=== PATIENT | female | born 1955 | race Caucasian/White ===

== ENCOUNTER 2018-01-14 14:05 | Outpatient (CLI) | payer BC | END 2018-01-14 14:06 | disposition home or self-care (01) | LOC: BICMAMMO 14:05 | PROVIDERS: ATTEND Family Medicine | DX: Z12.31 Encounter for screening mammogram for malignant neoplasm of breast (principal); R92.1 Mammographic calcification found on diagnostic imaging of breast | CPT/HCPCS: 77063; 77067 ==

== ENCOUNTER 2018-09-12 07:34 | Outpatient (CLI) | payer BC ==
--- NOTE | 2018-09-12 09:39 | MRI ---
MRI LUMBAR SPINE: HISTORY: Back pain. Lumbar radiculopathy, M54.16. FINDINGS: Multiplanar, multisequence noncontrast-enhanced images of the lumbar spine obtained. For the purposes of this dictation, the last freely mobile vertebral body will be considered to be th e L5 vertebral body. All other vertebral bodies will be numbered according to this. T12-L1: Unremarkable. L1-2: Mild facet hypertrophy is seen. The central canal and neural foramen are patent. L2-3: Disk desiccation is seen. There is a broad-based mild disk bulge with bilateral facet and lig amentum flavum hypertrophy resulting in mild central and lateral recess stenosis. An annular fissure is seen along the posterior aspect of the annulus fibrosis. L3-4: Disk desiccation is seen. There is a mild broad-based disk bulge with bilateral facet and lig amentum flavum hypertrophy. A small amount of fluid seen in the L3-4 facet joints. No significant d egree of central or neural foraminal narrowing is seen. L4-5: Disk desiccation is seen. There is a mild broad-based disk bulge. Bilateral facet and ligame ntum flavum hypertrophy is seen. Some fluid is seen in the L4-5 facet joints. Minimal bilateral levi ral foraminal narrowing is seen. L5-S1: Disk desiccation is seen. There is a broad-based disk bulge. Bilateral facet hypertrophy an d ligamentum flavum hypertrophy is seen. A small amount of fluid is seen in the L5-S1 facet joints. Mild left-sided neural foraminal narrowing is seen. The right neural foramen is patent. IMPRESSION: Minimal multilevel facet hypertrophic changes seen. No significant degree of central or neural fredrick inal narrowing is seen. POS: [facility]
== END 2018-09-12 07:35 | disposition home or self-care (01) ==
LOC: TBSIIMAG 07:34
PROVIDERS: ATTEND Family Medicine
DX: M54.16 Radiculopathy, lumbar region (principal); G89.29 Other chronic pain
CPT/HCPCS: 72148

== ENCOUNTER 2018-09-16 11:42 | Outpatient (CLI) | payer BC ==
--- NOTE | 2018-09-16 12:57 | RAD ---
LUMBAR SPINE 4 VIEWS: HISTORY: Low back pain. FINDINGS: There are 5 lumbar-type vertebrae. Pedicles are intact. Mild S-shaped rotatory scoliotic curvature. Osteophytosis throughout the vertebral bodies and facets. No abnormal translational motion upon fl exion or extension. IMPRESSION: Mild degenerative changes. No acute osseous abnormalities are demonstrated. POS: [facility]
== END 2018-09-16 11:43 | disposition home or self-care (01) ==
LOC: SCSRAD 11:42
PROVIDERS: ATTEND Specialist
DX: M47.26 Other spondylosis with radiculopathy, lumbar region (principal)
CPT/HCPCS: 72100

== ENCOUNTER 2019-02-09 15:03 | Outpatient (CLI) | payer BC ==
--- NOTE | 2019-02-09 18:23 | MMO ---
Bilateral MAMMO Bilat Screen [facility]. CLINICAL HISTORY: Patient is 63 years old and is seen for screening. The patient has no family history of breast cancer. The patient has no personal history of cancer. The patient has a history of left cyst aspiration in 1999 - benign. VIEWS: The views performed were: bilateral craniocaudal with tomosynthesis and bilateral mediolateral oblique with tomosynthesis. FILMS COMPARED: The present examination has been compared to prior imaging studies performed at 07/29/2015, and at [facility] on 10/26/2016 and 01/14/2018. MAMMOGRAM FINDINGS: There are scattered fibroglandular densities. Benign calcifications are noted bilaterally. There are no suspicious masses, calcifications or areas of architectural distortion. IMPRESSION: FINDINGS IN BOTH BREASTS ARE BENIGN. A ROUTINE FOLLOW-UP MAMMOGRAM IN 1 YEAR IS RECOMMENDED. THE RESULTS OF THIS EXAM WERE SENT TO THE PATIENT. ACR BI-RADS Category 2 - Benign finding MAMMOGRAPHY NOTE: 1. A negative mammogram report should not delay a biopsy if a dominant of clinically suspicious mass is present. 2. Approximately 10% to 15% of breast cancers are not detected by mammography. 3. Adenosis and dense breasts may obscure an underlying neoplasm.
== END 2019-02-09 15:04 | disposition home or self-care (01) ==
LOC: BICMAMMO 15:03
PROVIDERS: ATTEND Family Medicine
DX: Z12.31 Encounter for screening mammogram for malignant neoplasm of breast (principal)
CPT/HCPCS: 77063; 77067

== ENCOUNTER 2020-09-18 07:58 | Outpatient (CLI) | payer MEDICARE, BC ==
--- NOTE | 2020-09-18 08:27 | MMO ---
Bilateral MAMMO Bilat Screen [facility]. CLINICAL HISTORY: Patient is 65 years old and is seen for screening. The patient has no family history of breast cancer. The patient has no personal history of cancer. The patient has a history of left cyst aspiration in 2000 - benign. VIEWS: The views performed were: bilateral craniocaudal with tomosynthesis and bilateral mediolateral oblique with tomosynthesis. FILMS COMPARED: The present examination has been compared to prior imaging studies performed at [facility] on 10/26/2016, 01/14/2018 and 02/09/2019. This study has been interpreted with the assistance of computer-aided detection. MAMMOGRAM FINDINGS: There are scattered fibroglandular densities. There are no suspicious masses, calcifications or areas of architectural distortion. There are benign appearing calcifications in both breasts. Bilateral intramammary nodes. There are no suspicious masses, suspicious calcifications, or new areas of architectural distortion. IMPRESSION: THERE IS NO MAMMOGRAPHIC EVIDENCE OF MALIGNANCY. A ROUTINE FOLLOW-UP MAMMOGRAM IN 1 YEAR IS RECOMMENDED. THE RESULTS OF THIS EXAM WERE SENT TO THE PATIENT. ACR BI-RADS Category 2 - Benign finding MAMMOGRAPHY NOTE: 1. A negative mammogram report should not delay a biopsy if a dominant of clinically suspicious mass is present. 2. Approximately 10% to 15% of breast cancers are not detected by mammography. 3. Adenosis and dense breasts may obscure an underlying neoplasm. Reported by: MICHAELA ESTRADA MD Electonically Signed: [id number]
--- NOTE | 2020-09-18 09:50 | BD ---
DEXA BONE DENSITY STUDY: HISTORY: Postmenopausal. FINDINGS: Lumbar Spine: BMD (g/cm2) L1 0.775 T-Score: -2.0 L2 0.908 T-Score: -1.1 L3 0.894 T-Score: -1.7 L4 0.930 T-Score: -1.2 L1-L4 0.881 T-Score: -1.5 Femoral Neck: 0.712 T-Score: -1.2 Total Femur: 0.870 T-Score: -0.6 Impression: 1. Osteopenia in the left femoral neck and lumbar spine. 2. Ten-year fracture risk major osteoporotic fracture is 21% and of hip fracture 2.1%. These fractu re probabilities were calculated for an untreated patient. POS: [facility]
== END 2020-09-18 07:59 | disposition home or self-care (01) ==
LOC: BICMAMMO 07:58
PROVIDERS: ATTEND Family Medicine
DX: Z12.31 Encounter for screening mammogram for malignant neoplasm of breast (principal); Z13.820 Encounter for screening for osteoporosis; M85.89 Other specified disorders of bone density and structure, multiple sites; Z91.89 Other specified personal risk factors, not elsewhere classified
CPT/HCPCS: 77063; 77067; 77080

== ENCOUNTER 2021-07-11 09:56 | Outpatient (CLI) | payer MEDICARE, BC | END 2021-07-11 09:57 | disposition home or self-care (01) | LOC: TBSIIMAG 09:56 | PROVIDERS: ATTEND Specialist | DX: M50.10 Cervical disc disorder with radiculopathy, unspecified cervical region (principal); M47.24 Other spondylosis with radiculopathy, thoracic region; M47.22 Other spondylosis with radiculopathy, cervical region | CPT/HCPCS: 72141; 72146 ==

== ENCOUNTER 2021-09-19 08:36 | Outpatient (CLI) | payer MEDICARE, BC | END 2021-09-19 08:37 | disposition home or self-care (01) | LOC: BICMAMMO 08:36 | PROVIDERS: ATTEND Family Medicine | DX: Z12.31 Encounter for screening mammogram for malignant neoplasm of breast (principal) | CPT/HCPCS: 77063; 77067 ==

== ENCOUNTER 2022-09-21 09:48 | Outpatient (CLI) | payer MEDICARE, BC | END 2022-09-21 09:49 | disposition home or self-care (01) | LOC: BICMAMMO 09:48 | PROVIDERS: ATTEND Advanced Practice Midwife | DX: Z12.31 Encounter for screening mammogram for malignant neoplasm of breast (principal) | CPT/HCPCS: 77063; 77067 ==

== ENCOUNTER 2022-12-18 09:34 | Outpatient (CLI) | payer MEDICARE, BC | END 2022-12-18 09:35 | disposition home or self-care (01) | LOC: TBSIIMAG 09:34 | PROVIDERS: ATTEND Specialist | DX: M47.22 Other spondylosis with radiculopathy, cervical region (principal); M47.26 Other spondylosis with radiculopathy, lumbar region; M51.16 Intervertebral disc disorders with radiculopathy, lumbar region | CPT/HCPCS: 72141; 72148 ==

== ENCOUNTER 2023-03-12 09:59 | Outpatient (CLI) | payer MEDICARE, BC ==
[2023-03-12 11:25] LABS: Hemoglobin 13.9 g/dL (12.0-15.5); Mean Corpuscular HGB CONC 32.5 g/dL (32.0-36.0); Mean Corpuscular Hemoglobin 30.3 pg (27.0-33.0); Mean Corpuscular Volume 93.4 fl (81.6-98.3); Mean Platelet Volume 10.3 fl (7.4-10.4); Platelet Count 349 10x3/uL (150-450); RBC Distribution Width 12.2 % (11.5-14.5); Red Blood Cell (RBC) Count 4.58 10x6/uL (3.90-5.03); White Blood Cell (WBC) Count 7.4 10x3/uL (3.5-10.5)
[2023-03-12 11:38] LABS: Anion Gap 14 mmol/L (10-20); BUN (Urea Nitrogen) 21 mg/dL (9.8-20.1); Calc. Creatinine Clearance 0 mL/min (70-130); Carbon Dioxide 26 mmol/L (23-31); Chloride 104 mmol/L (98-107); Estimated GFR 71; Glucose 99 mg/dL (80-115); Potassium 4.5 mmol/L (3.5-5.1); Sodium 139 mmol/L (136-145)
== END 2023-03-12 10:00 | disposition home or self-care (01) ==
LOC: LABBT 09:59
PROVIDERS: ATTEND Neurological Surgery
DX: Z01.818 Encounter for other preprocedural examination (principal); M54.12 Radiculopathy, cervical region
CPT/HCPCS: 80048; 85027; 93005; 93010

== ENCOUNTER 2023-03-15 06:15 | Day surgery (SDC) | payer MEDICARE, BC ==
[2023-03-11 10:57] VITALS: BMI 29.2
[2023-03-15] MEDS ORDERED: Lidocaine 1% MPF 2 ML VIAL ONE ×2 (07:22→12:16)
[2023-03-15] MEDS ORDERED: Levofloxacin 500 mg/D5W 100 ml Premix Bag ONE (07:23)
[2023-03-15] MEDS ORDERED: Clindamycin/D5W 900 mg/50 ml Premix Bag ONE (07:23)
[2023-03-15] MEDS ORDERED: Scopolamine 1.5 mg/72 hour Patch ONE (07:52)
[2023-03-15] MEDS ORDERED: Dexamethasone 20 MG/5 ML VIAL ONE (08:32)
[2023-03-15] MEDS ORDERED: Ketorolac Tromethamine 30 MG/ML VIAL ONE (08:32)
[2023-03-15] MEDS ORDERED: Ondansetron PF 4 MG/2 ML Vial ONE (08:32)
[2023-03-15] MEDS ORDERED: PROPOFOL 200 MG/20 ML VIAL ONE (08:32)
[2023-03-15] MEDS ORDERED: Lidocaine 1% PF 5 ML VIAL ONE (08:32)
[2023-03-15] MEDS ORDERED: ePHEDrine Sulfate 50 MG/10 ML VIAL ONE (08:32)
[2023-03-15] MEDS ORDERED: Rocuronium Bromide 10 MG/ML (10ML VIAL) ONE (08:32)
[2023-03-15] MEDS ORDERED: fentaNYL 50 mcg/mL 1 mL Vial ONE (08:46)
[2023-03-15] MEDS ORDERED: Midazolam HCl 2 mg/2 ml Vial ONE (08:46)
[2023-03-15] MEDS ORDERED: SUGAMMADEX SODIUM 200 MG/2 ML VIAL ONE (10:00)
[2023-03-15] MEDS ORDERED: Fentanyl 250 MCG/5 ML VIAL ONE (10:14)
[2023-03-15] MEDS ORDERED: HYDROmorphone 0.5 MG/0.5 ML SYRINGE ONE ×2 (10:28→10:38)
== END 2023-03-15 15:02 | disposition home or self-care (01) ==
LOC: SDC 06:15
PROVIDERS: ATTEND Neurological Surgery
PROC: 0RG10A0 Fusion of Cervical Vertebral Joint with Interbody Fusion Device, Anterior Approach, Anterior Column, Open Approach (ICD-10-PCS; principal; 2023-03-15)
PROC: 0RT30ZZ Resection of Cervical Vertebral Disc, Open Approach (ICD-10-PCS; 2023-03-15)
DX: M50.123 Cervical disc disorder at C6-C7 level with radiculopathy (principal); G43.909 Migraine, unspecified, not intractable, without status migrainosus; Z79.899 Other long term (current) drug therapy; Z88.0 Allergy status to penicillin; Z88.1 Allergy status to other antibiotic agents; Z88.2 Allergy status to sulfonamides; Z91.041 Radiographic dye allergy status
CPT/HCPCS: 20930; 20936; 22551; 22845; 22853; J3010; C1713; C1776; J1100; J1170; J1885; J1956; J2250; J2405; J2704; J3490

== ENCOUNTER 2023-03-15 20:44 | Emergency (ER) | payer MEDICARE, BC ==
[2023-03-15 21:26] LABS: Hemoglobin 15.2 g/dL (12.0-16.0); Mean Corpuscular HGB CONC 34.8 g/dL (32.0-36.0); Mean Corpuscular Hemoglobin 33.2 pg (27.0-31.0); Mean Corpuscular Volume 95.4 fl (78.0-98.0); Mean Platelet Volume 8.2 fL (7.4-10.4); Platelet Count 314 10x3/uL (130-400); RBC Distribution Width 11.6 % (11.5-14.5); Red Blood Cell (RBC) Count 4.56 mill/uL (4.20-5.40); White Blood Cell (WBC) Count 16.7 10x3/uL (4.8-10.8)
[2023-03-15 21:44] LABS: Band 10 % (5-11); Lymphocytes 8 % (21-51); MDiff Complete? YES; Monocytes 4 % (0-10); Neutrophil 78 % (42-75); Platelet Morphology Comment Appears Adequate; RBC Morphology Normal
[2023-03-15 22:06] LABS: ALT (SGPT) 35 U/L (8-55); AST (SGOT) 37 U/L (5-34); Albumin 4.2 g/dL (3.4-4.8); Alkaline Phosphatase 90 U/L (40-110); Anion Gap 17 mmol/L (10-20); BUN (Urea Nitrogen) 14 mg/dL (9.8-20.1); Bilirubin, Total 0.4 mg/dL (0.2-1.2); Calc. Creatinine Clearance 0 mL/min (70-130); Calcium 9.4 mg/dL (7.8-10.44); Carbon Dioxide 19 mmol/L (23-31); Chloride 103 mmol/L (98-107); Estimated GFR 77; Globulin 2.9 g/dL (2.4-3.5); Glucose 153 mg/dL (80-115); Potassium 3.7 mmol/L (3.5-5.1); Protein, Total 7.1 g/dL (5.8-8.1); Sodium 135 mmol/L (136-145)
[2023-03-16] MEDS ORDERED: Ketorolac Tromethamine 30 MG/ML VIAL ONE (00:02)
[2023-03-16] MEDS ORDERED: diphenhydrAMINE 50 MG/ML VIAL ONE (00:02)
[2023-03-16] MEDS ORDERED: Ondansetron PF 4 MG/2 ML Vial ONE (00:02)
[2023-03-16] MEDS ORDERED: Prochlorperazine 10 MG/2 ML VIAL ONE (00:02)
== END 2023-03-16 02:15 | disposition home or self-care (01) ==
LOC: ERS 20:44
DX: R51.9 Headache, unspecified (principal); D72.829 Elevated white blood cell count, unspecified; K21.9 Gastro-esophageal reflux disease without esophagitis
CPT/HCPCS: 36415; 70450; 80053; 85025; 93005; 96361; 96374; 96375; J0780; J1200; J1885; J2405

== ENCOUNTER 2023-03-30 13:03 | Outpatient (CLI) | payer MEDICARE, BC | END 2023-03-30 13:04 | disposition home or self-care (01) | LOC: TBSIIMAG 13:03 | PROVIDERS: ATTEND Neurological Surgery | DX: M54.12 Radiculopathy, cervical region (principal); Z98.890 Other specified postprocedural states; M47.812 Spondylosis without myelopathy or radiculopathy, cervical region | CPT/HCPCS: 72040 ==

== ENCOUNTER 2023-09-23 14:33 | Outpatient (CLI) | payer MEDICARE, BC | END 2023-09-23 14:34 | disposition home or self-care (01) | LOC: BICMAMMO 14:33 | PROVIDERS: ATTEND Family Medicine | DX: Z12.31 Encounter for screening mammogram for malignant neoplasm of breast (principal); Z98.890 Other specified postprocedural states | CPT/HCPCS: 77063; 77067 ==